=== PATIENT | male | born 1950 ===

== ENCOUNTER 2022-02-28 11:08 | Outpatient (CLI) | payer OTHER | END 2022-02-28 11:09 | disposition home or self-care (01) | LOC: SONOGRAMA 11:08 | PROVIDERS: ATTEND Family Medicine | DX: G56.02 Carpal tunnel syndrome, left upper limb (principal); G62.9 Polyneuropathy, unspecified ==

== ENCOUNTER 2022-05-08 10:24 | Outpatient (CLI) | payer OTHER | END 2022-05-08 10:41 | disposition home or self-care (01) | LOC: MRI 10:24 | PROVIDERS: ATTEND Orthopaedic Surgery Hand Surgery | DX: S63.512D Sprain of carpal joint of left wrist, subsequent encounter (principal); S63.609A Unspecified sprain of unspecified thumb, initial encounter; M24.542 Contracture, left hand | CPT/HCPCS: 73721 ==